=== PATIENT | male | born 1995 ===

== ENCOUNTER 2017-01-25 22:26 | Emergency (ER) | payer BC ==
[~2017-01-25] VITALS: Ht 172.7 cm; Wt 79.4 kg
--- NOTE | 2017-01-25 22:46 | NUR ---
Pt ambulated to room, given dog bite incident report to fill out. Awaiting further eval
--- NOTE | 2017-01-25 23:06 | NUR ---
Dr Perdomo into eval patient
--- NOTE | 2017-01-25 23:20 | NUR ---
clean bite area as ordered
[2017-01-25] MEDS: AMOXICILLIN-CLAVUL 875-125MG TABLET PO ONE (23:21)
[2017-01-25] MEDS: TDAP DIPH,PERTUSS,TET VAC/PF 0.5 ML DISP.SYRIN IM ONE (23:22)
--- NOTE | 2017-01-25 23:22 | NUR ---
Patient refused Tdap vaccine stating "I had it 3 years ago before college."
[2017-01-25 23:28] VITALS: BP 115/67
[2017-01-25] MEDS ORDERED: AMOXICILLIN-CLAVUL 875-125MG TABLET ONE (23:28)
[2017-01-25] MEDS ORDERED: TDAP DIPH,PERTUSS,TET VAC/PF 0.5 ML DISP.SYRIN IM ONE (23:28)
== END 2017-01-25 23:29 | disposition home or self-care (01) ==
LOC: ER 22:35
DX: S61.451A Open bite of right hand, initial encounter (principal); W54.0XXA Bitten by dog, initial encounter; Y93.89 Activity, other specified; Y92.9 Unspecified place or not applicable; Y99.9 Unspecified external cause status
CPT/HCPCS: 90715; A4663